=== PATIENT | male | born 1960 | race Caucasian/White ===

== ENCOUNTER 2020-10-10 06:55 | Observation (INO) ==
--- NOTE | 2020-10-10 07:20 | History & Physical Bridge Note ---
Date of Service October 10, 2020 History & Physical Bridge Note I have examined the patient, reviewed the History & Physical and in the interval since the performance of the History & Physical I have noted the following changes of clinical significance: no changes noted
--- NOTE | 2020-10-10 07:21 | Pre Anesthesia Assessment ---
Date of Service October 10, 2020 Pre Sedation Assessment Cardiovascular RRR, no murmur, no edema Respiratory normal respiratory effort, lungs clear to auscultation Pre-Sedation Airway Assessment Smoking Status: Current every day smoker Mallampati Class: III ASA: ASA3 NPO Status Date of Last Intake of Fluids: 10/09/20 Time of Last Intake of Fluids: 18:00 Date of Last Intake of Solid Food: 10/09/20 Time of Last Intake of Solid Foods: 18:00 Procedure Planning Contraindications for Sedation: none Current Medications Reviewed: Yes Notes The planned sedation has been discussed with the patient. Informed Consent was obtained. I have identified the patient, determined the appropriateness of sedation and have assessed the patient immediately prior to the procedure. All medicine(s) and interventions are by my order.
[2020-10-10] MEDS ORDERED: HEPARIN (PORCINE) 1000 UNIT/ML 10 ML (CATH LAB USE ONLY) ONE ×2 (08:12→09:47)
[2020-10-10] MEDS ORDERED: MIDAZOLAM HCL 1 MG/ML 2ML VIAL ONE ×2 (08:12→09:20)
[2020-10-10] MEDS ORDERED: fentaNYL citrate PF 100 MCG/2 ML VIAL ONE ×2 (08:12→09:41)
[2020-10-10] MEDS ORDERED: niCARdipine HCL INJ 2.5 MG/ML 10 ML AMP ONE (08:12)
[2020-10-10] MEDS ORDERED: NITROGLYCERIN/D5W 100MCG/ML 20ML SYR ONE (08:13)
[2020-10-10] MEDS ORDERED: ADENOSINE IV SOLN 3 MG/ML 20 ML VIAL IV ONE (08:59)
--- NOTE | 2020-10-10 09:32 | Cardiac Catheterization ---
[facility] Data: Nutrition And Dietetics Instructor Cardiac Status Clinical evaluation leading to the procedure CAD Presenation: Stable angina Anginal Classification: CCS III Heart Failure: No Cardiogenic Shock within 24 Hours: No Cardiac Arrest within 24 Hours: No Imaging Studies Past 6 Months: Yes Stress Studies Past 6 Months: Yes Standard Exercise Test: No Stress Echocardiogram: No Stress Testing w/SPECT MPI: Yes - Negative (no ischemia but suggested circumflex territory infarct) Cardiac CTA: No Coronary Anatomy Dominant: Right Left Ventricular Angiography EF (%): n/a Diagnostic Physicians Name: Irvin Vu MD Status: Elective Closure Device Percutaneous Entry Location: Radial Closure Device: Radial Band Recommendations: Management Recommendatons (as above) Cardiac Cath Procedure Full Procedure Date October 10, 2020 Pre-Procedure Diagnosis Pre-Procedure Diagnosis: Angina and CAD AUC Score AUC Score: 7 Post-Procedure Diagnosis Post-Procedure Diagnosis: Severe CAD and Normal Intracardiac Pressures Procedure(s) Performed Procedure(s) Performed: Coronary Angiography and Left Heart Cath [employer] Glazer Irvin Vu MD Building Operator(s) Showers and [place] Estimated Blood Loss Estimated Blood Loss: < 25 ml Medication(s) Medication(s): Fentanyl, Heparin, Lidocaine 1%, Nicardipine and Versed Summary of Findings Procedures: 1. Coronary angiography 2. Left heart catheterization 3. Moderate sedation Indications: 1. 60-year-old gentleman with a history significant for hypertension, dyslipidemia, and tobacco abuse who presented with progressively worsening dyspnea with exertion and chest discomfort with myocardial perfusion study suggesting circumflex infarct performed at [facility]. Coronary angiography: 1. Left main coronary artery: LMCA without significant CAD. 2. Left anterior descending: LAD is a large-caliber vessel that wraps around the apex. Mid LAD 20%. Distal LAD 20%. Very small caliber D1 with 80% ostial stenosis. Very small caliber D2. Medium caliber D3. 3. Circumflex: Circumflex without significant CAD. Small OM1. Possibly medium caliber OM 2 with proximal 99% stenosis with GUY I forward flow and fills distally with left to left and right to left collaterals. 4. Right coronary artery: Large and dominant. Diffusely diseased RCA with proximal 20 to 30%. Mid RCA 50 to 70%. Late mid/early distal RCA 40 to 50%. Small to medium caliber PDA with ostial 60 to 70%. Small to medium caliber PL with mid 70%. Right to left collaterals. Left heart catheterization: 1. Left ventriculography was not performed. 2. No aortic stenosis. Peak to peak gradient across the aortic valve was less than 5 mmHg. 3. Normal LVEDP; 9 mmHg. Moderate sedation: 1. Sedation start time: 8:46 AM 2. Sedation end time: 9:05 AM Impression: 1. Severe CAD involving OM 2 that fills partially via left to left and right to left collaterals. 2. Diffusely diseased RCA with moderate/moderate to severe CAD. 3. Moderate to severe/severe CAD in smaller branch vessels (PDA, PL, D1). 4. Otherwise, nonobstructive CAD. 5. No significant aortic stenosis. 6. Normal left-sided filling pressure. Plan: 1. Dr. Naqvi of interventional cardiology was asked to review images and plans on attempting PCI of OM given ongoing symptoms despite medical therapy. 2. Optimize medical therapy. 3. Smoking cessation. Hemodynamics Rest Ao:: 123/64 Final Ao: 128/63 LV: 126/0/9 Recommendations Recommendations: Management Recommendatons (as above) Specimens Specimens: None Radiation Exposure (mGy) 1332 mGy. Fluoro time 3.1 min. Contrast (mls) 45 ml Procedural Complication(s) None Disposition remains in laboratory chemist I attest to the content of the Intraoperative Record and any orders documented therein. Any exceptions are noted below. [facility] Card Cath Procedure Codes Cardiac Catheterization Procedure 1: Cardiovascular Cath Procedures: 10509 Coronaries and LHC (+/-LV) Moderate Sedation Procedure 1: Sedation/Anesthesia: 70225 Mod Sedation by the same physician;Init15 Min Child Age 5 & Up Procedure 2: Sedation/Anesthesia: 26929 Mod Sedation by the same physician; Ea [id number] Minutes PG Care Time/CCT Total # of Minutes Spent Total Time Spent with Patient: Total time spent is greater than 50% in coordination of care (as documented) at patient's floor/unit and/or counseling patient:
[2020-10-10] MEDS ORDERED: CLOPIDOGREL BISULFATE 300 MG TAB ONE (10:03)
--- NOTE | 2020-10-10 10:08 | Post Anesthesia Assessment ---
Date of Service October 10, 2020 Post Sedation Assessment Vital Signs Temp Pulse Resp BP Pulse Ox 10/10/20 07:15 98.4 F 50 L 20 131/85 96 Recovery Score Activity: Moves 4 extremities Respiration: Deep Breath/Cough Circulation: +/-20% PreAnes Value Consciousness: Fully Awake Oxygen Saturation: O2 needed for >90% Discharge Sedation Level of Care: Fast Track Phase II Post Sedation Plan On clinical assessment, the patient appears to have tolerated the sedation without complications. Patient is recovering as anticipated. Patient will continue to be monitored by nursing and may be discharged when sedation discharge criteria are met per below protocol. Upon Completions of procedure up to 15 minutes continue every 5 minute vital signs and the P.A.R. score; then discharge to a Phase I or Fast Track to Phase II per the following guidelines: * Discharge Patient to appropriate Phase II area if PAR is 8 or greater or return to pre- procedure baseline. The post - procedure orders will be as directed. * If PAR score is less than 8 or not return to pre-procedure baseline then patient will follow Phase I monitoring till PAR is reached for Phase II. The Phase I may be done in procedure room or may call to secure a Phase I area. * If naloxone or flumazenil are used for reversal, hold in Phase I for continued monitoring from when last reversal dose was given for a minimum of 60 minutes or longer pending the nurse and/or physician discretion of patient condition before discharge to Phase II. Please call the Sedation Physician to re-evaluate and complete post-note for discharge to Phase II area. Do NOT discharge from procedure sedation or Phase 1 until post- sedation evaluation note is complete by procedure /sedation MD Sedation Discharge Instructions to be given to the patient at discharge to home.
--- NOTE | 2020-10-10 10:08 | Cardiac Catheterization ---
[facility] Data: Rework Operator Cardiac Status Clinical evaluation leading to the procedure CAD Presenation: Positive Stress Test and Stable angina Anginal Classification: CCS III Heart Failure: No Cardiogenic Shock within 24 Hours: No Cardiac Arrest within 24 Hours: No Imaging Studies Past 6 Months: Yes Stress Studies Past 6 Months: Yes Stress Testing w/SPECT MPI: Risk/Extent of Ischemia (Low) Diagnostic Physicians Name: Jimmie Naqvi MD Status: Elective Closure Device Percutaneous Entry Location: Radial Closure Device: Radial Band Recommendations: PCI without planned CABG PCI Indication: + Stress Test and Angina despite med therapy Lesion Segment Name: proximal OM2 Culprit Artery: Yes Stenosis Prior to Rx (%): 99 Chronic Total Occlusion: No IVUS: No FFR: No Pre-Procedure GUY Flow: 1 Previously Treated Lesion: No Lesion Complexity: High/C Lesion Length (mm): 20 Thrombus Present: No Bifurcation Lesion: Yes Guidewire Across Lesion: Stenosis Post-Procedure (%): 0 Post-Procedure GUY Flow: 3 Devices(s) Deployed: Yes Yes Intraprocedure Events Significant Disection: No Perforation: No Cardiac Cath Procedure Full Procedure Date October 10, 2020 Pre-Procedure Diagnosis Pre-Procedure Diagnosis: Angina and CAD AUC Score AUC Score: 7 Post-Procedure Diagnosis Post-Procedure Diagnosis: Severe CAD and Successful PCI Procedure(s) Performed Procedure(s) Performed: Coronary Angiography and Drug Eluting Stent Piping Blocker Jimmie Naqvi MD [facility] Manager(s) Michael Estimated Blood Loss Estimated Blood Loss: < 25 ml Medication(s) Medication(s): Clopidogrel, Fentanyl, Heparin, Nicardipine, Nitroglycerin and Versed Summary of Findings Indication: Refractory angina, abnormal stress test Access: 6 Fr right radial artery Catheters: EBU 3.5 guide Findings: For full details of patient's coronary angiography please see cath report dictated by Dr. Vu. Briefly, patient found to have a subtotally occluded ostial OM 2. Decision to proceed with PCI. -- PCI -- Antithrombotic therapy: Heparin, clopidogrel Procedure: Left main cannulated with EBU 3.5 guide Classroom Paraprofessional 50 wire passed across lesion into distal vessel Proximal OM 2 lesion predilated with 2.0 compliant balloon Dilated lesion stented with 2.25 x 28 mm Xience drug-eluting stent placed from ostium to mid segment of OM2 Stent post-dilated with 2.5 noncompliant balloon IC vasodilators administered for spasm Post procedure GUY 3 flow, stent well expanded with minimal residual stenosis and no apparent cardiac complications. Arterial Closure: TR band Summary: 1. Successful PCI of ostial to mid OM 2 with single drug-eluting stent (2.25 x 28 mm Xience; postdilated with 2.5 NC). Recommendations: To PCU for continued monitoring Loaded with clopidogrel 600 mg in Rework Operator Continue dual-antiplatelet therapy for at least 6 months Consult cardiac Rehab If refractory symptoms in the future consider further invasive evaluation RCA plus or minus stenting Hemodynamics Rest Ao:: 128/63/103 Final Ao: 129/68/93 LV: -- Recommendations Recommendations: PCI without planned CABG Specimens Specimens: None Radiation Exposure (mGy) 3947 Contrast (mls) 140 Anesthesia moderate Procedural Complication(s) None Disposition PCU I attest to the content of the Intraoperative Record and any orders documented therein. Any exceptions are noted below. [facility] Card Cath Procedure Codes Moderate Sedation Procedure 1: Sedation/Anesthesia: 29119 Mod Sedation by the same physician; Ea [id number] Minutes Stenting Procedure 1: Cardiovascular Stent Procedures: 97051 Perc transcatheter placement of intracoronary stent(s), with ang PG Care Time/CCT Total # of Minutes Spent Total Time Spent with Patient: Total time spent is greater than 50% in coordination of care (as documented) at patient's floor/unit and/or counseling patient:
[2020-10-10] MEDS ORDERED: ONDANSETRON INJ 2 MG/ML 2 ML VIAL IV PRN (10:22)
[2020-10-10] MEDS ORDERED: NITROGLYCERIN SL 0.4 MG/TAB TAB SL PRN (10:22)
[2020-10-10] MEDS ORDERED: ACETAMINOPHEN 325 MG TAB PO PRN (10:22)
[2020-10-10] MEDS ORDERED: SODIUM CHLORIDE 0.9% 1,000 ML IV SCH (10:30)
--- NOTE | 2020-10-10 14:40 | Electrocardiogram Report ---
Test Reason : Blood Pressure : / mmHG Vent. Rate : 046 BPM Atrial Rate : 046 BPM P-R Int : 170 ms QRS Dur : 094 ms QT Int : 486 ms P-R-T Axes : 051 041 053 degrees QTc Int : 425 ms Sinus bradycardia Increased R/S ratio in V1, consider early transition or posterior infarct Abnormal ECG No previous ECGs available Confirmed by Jerry Corona ([id number]) on 10/10/2020 2:39:42 PM Referred By: Irvin Vu Confirmed By:Jerry Corona
[2020-10-10] MEDS ORDERED: Nursing to Pharmacy Communication STA (20:03)
[2020-10-10] MEDS ORDERED: ATORVASTATIN 40 MG TAB PO SCH (21:00)
[2020-10-10] MEDS ORDERED: lisinopril 10 MG TAB PO SCH (21:00)
[2020-10-10] MEDS ORDERED: ISOSORBIDE MONO EXTENDED REL 30 MG TABCR PO SCH (21:00)
[2020-10-10] MEDS ORDERED: PARoxetine HCL 20 MG TAB PO SCH (21:00)
[2020-10-10] MEDS ORDERED: ATENOLOL 50 MG TABLET PO SCH (21:00)
[2020-10-10] MEDS ORDERED: ASPIRIN 81 MG ECTAB PO SCH (21:00)
[2020-10-10] MEDS ORDERED: GABAPENTIN 100 MG CAP PO SCH (21:00)
[2020-10-10] MEDS ORDERED: amLODIPine BESYLATE 5 MG TAB PO SCH (21:00)
[2020-10-11 06:34] LABS: Basophils # (auto) 0.03 K/uL (0-0.2); Basophils % (auto) 0.2 %; Eosinophils # (auto) 0.26 K/uL (0-0.5); Eosinophils % (auto) 2.2 %; Hemoglobin 14.2 g/dL (14.0-18.0); Immature Granulocytes # (auto) 0.04 K/uL (0.00-0.02); Immature Granulocytes % (auto) 0.3 %; Lymphocytes # (auto) 2.58 K/uL (1.2-3.4); Lymphocytes % (auto) 21.4 %; Mean Corpuscular Hemoglobin 32.4 pg (25-34); Mean Corpuscular Hgb Conc 34.6 g/dL (32-36); Mean Corpuscular Volume 93.6 fL (80-100); Mean Platelet Volume 11.5 fL (7.4-10.4); Monocytes # (auto) 0.84 K/uL (0.11-0.59); Neutrophils # (auto) 8.32 K/uL (1.4-6.5); Neutrophils % (auto) 68.9 %; Platelet Count 176 K/uL (130-400); RDW Coefficient of Variation 13.8 % (11.5-14.5); RDW Standard Deviation 47.4 fL (36.4-46.3); Red Blood Count 4.38 M/uL (4.7-6.1); White Blood Count 12.07 K/uL (4.8-10.8)
[2020-10-11 07:01] LABS: BUN Creatinine Ratio 20.3 (10-20); Calcium 8.5 mg/dl (8.5-10.1); Creatinine Clr Calc Pharmacy 145.7 ml/min; Est GFR (African American) 115.9 ml/min; Potassium 4.2 mmol/L (3.5-5.1)
[2020-10-11] MEDS ORDERED: ATORVASTATIN 40 MG TAB PO SCH (09:00)
[2020-10-11] MEDS ORDERED: ASPIRIN 81 MG ECTAB PO SCH (09:00)
[2020-10-11] MEDS ORDERED: lisinopril 10 MG TAB PO SCH (09:00)
[2020-10-11] MEDS ORDERED: ISOSORBIDE MONO EXTENDED REL 30 MG TABCR PO SCH (09:00)
[2020-10-11] MEDS ORDERED: CLOPIDOGREL BISULFATE 75 MG TAB PO SCH (09:00)
[2020-10-11] MEDS ORDERED: amLODIPine BESYLATE 5 MG TAB PO SCH (09:00)
[2020-10-11] MEDS ORDERED: ATENOLOL 50 MG TABLET PO SCH (09:00)
[2020-10-11] MEDS ORDERED: PARoxetine HCL 20 MG TAB PO SCH (09:00)
--- NOTE | 2020-10-11 09:27 | Discharge Summary ---
Date of Service October 11, 2020 Admission HPI Per Admitting Provider Mr. Nicolas is a 60-year-old man with a history of hypertension, dyslipidemia, tobacco abuse seen by Dr. Vu in the setting of accelerating exertional dyspnea/angina. Myocardial perfusion study suggested circumflex infarct. Presented for cardiac catheterization. Specialty Data Cardiology Cardiac catheterization: Impression: 1. Severe CAD involving OM 2 that fills partially via left to left and right to left collaterals. 2. Diffusely diseased RCA with moderate/moderate to severe CAD. 3. Moderate to severe/severe CAD in smaller branch vessels (PDA, PL, D1). 4. Otherwise, nonobstructive CAD. 5. No significant aortic stenosis. 6. Normal left-sided filling pressure. PCI: 1. Successful PCI of ostial to mid OM 2 with single drug-eluting stent (2.25 x 28 mm Xience; postdilated with 2.5 NC). Discharge Data Consultations 10/10/20 10:28 Consult Cardiac Rehabilitation Routine Procedures Performed Operation Date: 10/10/20 08:00 Actual Procedures p Cath, Left with Cors and Vent - Irvin Vu MD s Cineradiography w/Routine Exam - Irvin Vu MD s Drug Eluting Stent SGl Vessel - Seth Naqvi MD Hospital Course (1) Coronary artery disease: Patient underwent coronary angiography via right radial artery. Found to have a subtotally occluded proximal OM2 which was treated with a single drug- eluting stent. Also found to have intermediate diffuse RCA disease along with PDA/PLB disease. Plan to medically manage residual RCA disease. PCI uncomplic ated and admitted to telemetry for observation. Had no chest pain. No apparent access site complications. Postprocedural labs stable. Telemetry revealed persistent sinus bradycardia and home atenolol was held. Discharged on DAPT with aspirin, clopidogrel. Imdur discontinued in the setting of headache. Atenolol reduced to 25 mg daily in the setting of bradycardia. Follow-up with Dr. Vu in 2 weeks. Discharge Instructions Home Medications aspirin 81 mg tablet,delayed release 81 mg PO DAILY 09/28/20 [History Confirmed 10/10/20] atorvastatin 80 mg tablet 80 mg PO DAILY 09/28/20 [History Confirmed 10/10/20] gabapentin 100 mg capsule 100 mg PO HS cap 09/28/20 [History Confirmed 10/10/20] lisinopril 20 mg tablet 10 mg PO DAILY tab 09/28/20 [History Confirmed 10/10/20] nitroglycerin 0.4 mg sublingual tablet 0.4 mg SUBLINGUAL Q5M PRN 09/28/20 [History Confirmed 10/10/20] paroxetine HCl 40 mg tablet 40 mg PO DAILY 09/28/20 [History Confirmed 10/10/20] amlodipine 5 mg tablet 2.5 mg PO DAILY #30 tab 10/04/20 [Rx Confirmed 10/10/20] atenolol 25 mg PO DAILY #0 tab 10/11/20 [Rx Confirmed 10/10/20] clopidogrel 75 mg PO QAM #30 tab 10/11/20 [Rx] Coding Level of Care Code 88990 OBS Care - Discharge Diagnoses Coronary artery disease I25.10
[2020-10-11] MEDS ORDERED: ENOXAPARIN INJ 40 MG/0.4 ML SYR SQ SCH (11:00)
== END 2020-10-11 10:00 | disposition home or self-care (01) ==
LOC: CC 06:55 → 2S 06:55